=== PATIENT | female | born 1985 | race Two or more races ===

== ENCOUNTER → 2017-02-23 | Outpatient (CLI) | payer SELFPAY | LOC: RAD 14:43 | PROVIDERS: ATTEND Nurse Practitioner Women's Health | DX: Z34.82 Encounter for supervision of other normal pregnancy, second trimester (principal) | CPT/HCPCS: 76805 ==

== ENCOUNTER → 2017-07-21 | Outpatient (CLI) | payer MEDICAID ==
[~2017-07-21] MED LIST: LIDOCAINE 1% INJ-PF (10 MG/ML) 30 ML SDV ONE; MISOPROSTOL 0.2 MG TABLET ONE; OXYTOCIN/NORMAL SALINE 0 UNIT/0 ML RTUINJ ONE; PENICILLIN G-K 5 MILLION UNIT VIAL ONE
[2017-07-22 00:32] LABS: APPEARANCE,URINE CLEAR; BILIRUBIN,URINE NEGATIVE (NEGATIVE); GLUCOSE, URINE NEGATIVE (NEGATIVE); KETONES,URINE NEGATIVE (NEGATIVE); LEUKOCYTE ESTERASE,URINE NEGATIVE (NEGATIVE); NITRITE,URINE NEGATIVE (NEGATIVE); PROTEIN,URINE NEGATIVE (NEGATIVE); URINE SPECIFIC GRAVITY 1.008; UROBILINOGEN,URINE NEGATIVE mg/dL (<2.0)
--- NOTE | 2017-07-22 02:14 | Non Stress Test Report ---
Non Stress Test Datetime Report Generated by CPN: 07/22/2017 02:13 DEMOGRAPHIC EGA NST: 40.2 INDICATION Indication for Study: Other Indication for Study (NST) Other: Labor Check MONITORING Monitor Explained: Monitor Explained; Test Explained; Patient Verbalized Understanding Time on Monitor: 07/22/2017 00:06 Time off Monitor: 07/22/2017 01:29 NST Duration: 83 NST INTERVENTIONS NST Interventions: None Physician Notified NST: Dr Luna BABY A: [id number] BABY A Movement : Present Contraction Frequency : 6-8 FHR Baseline : 135 Accelerations : 15X15 Decelerations : None Variability : Moderate 6-25bpm NST Review: Meets Criteria for Reactive NST NST Review and Verified By : B Perez, RN NST Results: Reactive NST REPORT Report Trigger: Send Report
[2017-07-22 03:03] LABS: URINE BARBITURATES SCREEN NEGATIVE; URINE METHADONE SCREEN NEGATIVE; URINE OPIATES LOW NEGATIVE; URINE PHENCYCLIDINE SCREEN NEGATIVE
== END | disposition home or self-care (01) ==
LOC: LC 23:45
PROVIDERS: ATTEND Student in an Organized Health Care Education/Training Program
PROC: 4A1HXCZ Monitoring of Products of Conception, Cardiac Rate, External Approach (ICD-10-PCS; principal; 2017-07-21)
DX: O47.1 False labor at or after 37 completed weeks of gestation (principal); Z3A.40 40 weeks gestation of pregnancy
CPT/HCPCS: 59025; 80307; 81005; J2540; J2590; J3490

== ENCOUNTER 2017-07-27 07:47 | Inpatient (IN) | payer MEDICAID ==
[2017-07-27] MEDS ORDERED: RINGERS SOLUTION,LACTATED 1,000 ML IV PRN (08:03)
[2017-07-27] MEDS ORDERED: RINGERS SOLUTION,LACTATED 300 ML IV ONE (08:03)
[2017-07-27] MEDS ORDERED: LIDOCAINE 1% INJ-PF (10 MG/ML) 30 ML SDV ONE (08:11)
[2017-07-27] MEDS ORDERED: MISOPROSTOL 0.2 MG TABLET ONE (08:11)
[2017-07-27] MEDS ORDERED: PENICILLIN G-K 5 MILLION UNIT VIAL ONE (08:12)
[2017-07-27] MEDS ORDERED: OXYTOCIN/NORMAL SALINE 20 UNIT/1,000 ML RTUINJ ONE (08:12)
[2017-07-27 08:44] LABS: ABSOLUTE BASOPHILS # (AUTO) 0.1 10^3/uL (0.0-0.2); ABSOLUTE EOSINOPHILS # (AUTO) 0.1 10^3/uL (0.0-0.6); ABSOLUTE LYMPHOCYTES (AUTO) 2.4 10^3/uL (0.5-4.7); ABSOLUTE MONOCYTES (AUTO) 0.5 10^3/uL (0.1-1.4); ABSOLUTE NEUT (AUTO) 4.3 10^3/uL (1.7-8.2); BASOPHILS % (AUTO) 1.1 % (0-2); EOSINOPHILS % (AUTO) 0.8 % (0-6); HEMATOCRIT 36.9 % (36.0-47.0); HEMOGLOBIN 12.4 g/dL (12.0-15.5); HGB HCT DIFFERENCE 0.3; LYMPHOCYTES % (AUTO) 32.4 % (13-45); MEAN CORPUSCULAR HEMOGLOBIN 25.8 pg (27.0-33.4); MEAN CORPUSCULAR HGB CONC 33.5 g/dL (32.0-36.0); MEAN CORPUSCULAR VOLUME 77 fl (80-97); MONOCYTES % (AUTO) 6.7 % (3-13); RED BLOOD COUNT 4.79 10^6/uL (3.72-5.28); RED CELL DISTRIBUTION WIDTH 16.4 % (11.5-14.0); WHITE BLOOD COUNT 7.3 10^3/uL (4.0-10.5)
[2017-07-27] MEDS ORDERED: DIPH/PERTUSS(ACELL)/TETANUS VAC/PF 0.5 ML SYR (>=10YO) IM PRN (09:45)
[2017-07-27] MEDS ORDERED: DIBUCAINE 1% OINTMENT 28 GM TP PRN (09:45)
[2017-07-27] MEDS ORDERED: OXYTOCIN/NORMAL SALINE 20 UNIT/1,000 ML RTUINJ IV PRN (09:45)
[2017-07-27] MEDS ORDERED: BENZOCAINE/MENTHOL AEROSOL SPRAY 56 ML TOP PRN (09:45)
[2017-07-27] MEDS ORDERED: ACETAMINOPHEN WITH CODEINE #3 TABLET PO PRN (09:45)
[2017-07-27] MEDS ORDERED: MISOPROSTOL 0.2 MG TABLET PR ONE (09:45)
[2017-07-27] MEDS ORDERED: ZOLPIDEM TARTRATE 5 MG TABLET PO PRN (09:45)
[2017-07-27] MEDS ORDERED: MEASLES,MUMPS&RUBELLA VACC/PF 0.5 ML VIAL SUBCUT PRN (09:45)
[2017-07-27] MEDS ORDERED: IBUPROFEN 800 MG TABLET ONE (09:47)
--- NOTE | 2017-07-27 11:52 | Admission Physical ---
Datetime Report Generated by CPN: 07/27/2017 11:52 CURRENT ADMISSION Hx Assessment: The History has been Reviewed and is Current Chief Complaint: Uterine Contractions Indication for Induction: Not Applicable Admit Plan: Admit to Unit; Initiate Labor Protocol ALLERGIES Medication Allergies: No Medication Allergies: No Known Allergies (07/22/2017) Medication Allergies: No Known Allergies (10/22/2011) Latex: No Latex Allergies Food Allergies: none Environmental Allergies: none OBSTETRICAL HISTORY EDC: 07/20/2017 00:00 : 3 Para: 2 Term: 2 : 0 SAB: 0 IAB: 0 Ectopic: 0 Livin Cesareans: 0 VBACs: 0 Multiple Births: 0 Gestational Diabetes: No Rh Sensitization: No Incompetent Cervix: No KIP: No Infertility: No ART Treatment: No Uterine Anomaly: No IUGR: No Hx Previous C/S: No Macrosomia: No Hx Loss/Stillborn: No PIH: No Hx : No Placenta Previa/Abruption: No Depression/PP Depression: No PTL/PROM: No Post Hemorrhage: No Current Procedures: Ultrasound; NST SEE RECORDS Alcohol: No Marijuana : No Cocaine: No Other Illicit Drugs: No Cigarettes: Never Smoker. 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 Surgery: No Heart Disease: No Hosp/Surgery: No Autoimmune Disorder: No Anesthetic Complications: No Kidney Disease: No Abnormal Pap Smear: No Neuro/Epilepsy: No Psychiatric Disorders: No Other Medical Diseases: No Hepatitis/Liver Disease: No Significant Family History: No Varicosities/Phlebitis: No Trauma/Violence : No Thyroid Dysfunction: No INFECTIOUS HISTORY Gonorrhea: No Genital Herpes: No Chlamydia: No Tuberculosis: No Syphilis: No Hepatitis: No HIV/AIDS Exposure: No Rash or Viral Illness: No HPV: No PHYSICAL EXAM General: Normal HEENT: Deferred Neurologic: Deferred Thyroid: Normal Heart: Normal Lungs: Normal Breast: Deferred Back: Normal Abdomen: Normal Genitourinary Exam: Normal Extremities: Normal DTRs: Normal Pelvic Type: Adequate Physical Exam Comments: EDC 07-20 G3 P 2 Pelvis proven 8-8 transferred to [facility] @ 35 weeks GBS +, anemia late care 02-18-17 poor dentition FETUS A EGA: 41.0 Monitoring: External US FHR- Baseline: 150 Variability: Moderate 6-25bpm Decelerations: Early Admit Comment: Admitted to L_D in active labor, Cat 1 strip with early, wanting to push anticipate PLANS FOR LABOR AND DELIVERY Labor and Delivery: None Pain Management: Natural Feeding Preference: Breast Benefit of Breast Feed Discussed: Yes Circumcision: N/A INFORMED CONSENT Assignment: Sarah Chaudhry MD Signature: with User ID: [email or web address] : with User ID: [email or web address]
[2017-07-27] MEDS: PRENATAL VITAMIN W-O CA NO5/FE FUMARATE/FA CAPSULE PO SCH (12:20)
[2017-07-27] MEDS: SENNOSIDES/DOCUSATE 8.6-50 MG 1 EACH TABLET PO SCH (12:20)
[2017-07-27] MEDS: FERROUS SULFATE 325 MG TABLET PO SCH ×2 (12:20→18:04)
[2017-07-27] MEDS: DOCUSATE SODIUM 100 MG CAPSULE PO SCH ×2 (12:20→18:04)
[2017-07-27] MEDS: IBUPROFEN 800 MG TABLET PO SCH ×2 (14:24→21:30)
[2017-07-27] MEDS: ACETAMINOPHEN WITH CODEINE #3 TABLET PO PRN ×2 (14:35→20:31)
[2017-07-27 17:01] LABS: APPEARANCE,URINE CLEAR; BILIRUBIN,URINE NEGATIVE (NEGATIVE); GLUCOSE, URINE 150 mg/dL (NEGATIVE); KETONES,URINE NEGATIVE (NEGATIVE); LEUKOCYTE ESTERASE,URINE TRACE (NEGATIVE); NITRITE,URINE NEGATIVE (NEGATIVE); PROTEIN,URINE 30 mg/dL (NEGATIVE); URINE SPECIFIC GRAVITY 1.004; UROBILINOGEN,URINE NEGATIVE mg/dL (<2.0)
[2017-07-27 17:21] LABS: URINE BARBITURATES SCREEN NEGATIVE; URINE METHADONE SCREEN NEGATIVE; URINE PHENCYCLIDINE SCREEN NEGATIVE
[2017-07-27 17:30] LABS: URINE OPIATES LOW UNCONFIRMED POSITIVE
[2017-07-28] MEDS: IBUPROFEN 800 MG TABLET PO SCH ×3 (05:36→22:02)
[2017-07-28 07:17] LABS: HEMATOCRIT 35.1 % (36.0-47.0); HEMOGLOBIN 11.7 g/dL (12.0-15.5); MEAN CORPUSCULAR HEMOGLOBIN 25.6 pg (27.0-33.4); MEAN CORPUSCULAR HGB CONC 33.2 g/dL (32.0-36.0); MEAN CORPUSCULAR VOLUME 77 fl (80-97); RED BLOOD COUNT 4.56 10^6/uL (3.72-5.28); RED CELL DISTRIBUTION WIDTH 17.1 % (11.5-14.0); WHITE BLOOD COUNT 9.8 10^3/uL (4.0-10.5)
--- NOTE | 2017-07-28 09:25 | Delivery Summary ---
Del Sum A-C Datetime Report Generated by CPN: 07/28/2017 09:25 DELIVERY PERSONNEL DELIVERY PERSONNEL: [id number];[phone] DELIVERY PERSONNEL: [id number] Delivery Doctor:: Nichelle Velez CNM Labor and Delivery Nurse:: Sabine Iqbal RNtruck headlight assembler Nurse:: Mirta Duarte RN Nursery Nurse:: Olga Nair RN MATERNAL INFORMATION Delivery Anesthesia: None Medications After Delivery: Pitocin Drip 20 Units/1000ml NSS; Cytotec 800mcg Per Rectum/Vagina Estimated Blood Loss (ml): 300 Maternal Complications: Precipitous Labor (<3hrs) Provider Comments: Progressed quickly and started pushing, pt out of control, not pushing n control, at delivery of vtx, turtle sign, Mc Kin[place], supra pubic, no lateral traction, delivery of infant after 60 seconds, SD secondary to poor maternal effort, baby placed on mothers abd, stimulated, cord blood to lab, spont delivery of grossly nl intact placenta, 3 VC, EBL = 300cc, father cut cord after 2 minutes, Pitocin, cytotec 800mcg via rectum, FFFM baby and mom in recovery in stable condition LABOR SUMMARY EDC: 07/20/2017 00:00 No. Babies in Womb: 1 Attempted: No Labor Anesthesia: None LABOR INFORMATION Reason for Induction: Not Applicable Onset of Labor: 07/27/2017 06:30 Complete Dilatation: 07/27/2017 09:19 Oxytocin: N/A Group B Beta Strep: Positive Antibiotics # of Doses: 1 Antibiotics Time of Last Dose: 0829 Name of Antibiotic Given: Penicillin Steroids Given: None Reason Steroids Not Administered: Not Applicable Other Reason Not Administered: N/A MEMBRANES Membranes Rupture Method: Artificial Rupture of Membranes: 07/27/2017 08:59 Length of Rupture (hr): 0.47 Amniotic Fluid Color: Clear Amniotic Fluid Amount: None Amniotic Fluid Odor: Normal STAGES OF LABOR Stage 1 hr: 2 Stage 1 min: 49 Stage 2 hr: 0 Stage 2 min: 8 Stage 3 hr: 0 Stage 3 min: 6 Total Time in Labor hr: 3 Total Time in Labor min: 3 VAGINAL DELIVERY Episiotomy: None Laceration Extension: N/A Laceration Type: None Laceration Repair: Not Applicable Sponge Count Correct: N/A Sharps Count Correct: N/A BABY A INFORMATION Delivery Date/Time: 07/27/2017 09:27 Method of Delivery: Vaginal Born in Route : No : N/A Forceps: N/A Vacuum Extraction: N/A Shoulder Dystocia : Yes SHOULDER DYSTOCIA BABY A Delivery of Head: 07/27/2017 09:26 Time Head to Delivery : 1.0 1st Intervention to Resolve: McRobert's Maneuver 2nd Intervention to Resolve: Suprapubic Pressure Verify NO Fundal Pressure: No Fundal Pressure Applied Arm Under Symphisis at Del: Right PRESENTATION/POSITION BABY A Presentation: Cephalic Cephalic Presentation: Vertex Vertex Position: Left Occipital Anterior Breech Presentation: N/A PLACENTA INFORMATION BABY A Placenta Delivery Time : 07/27/2017 09:33 Placenta Method of Delivery: Spontaneous Placenta Status: Delivered SCORES BABY A Heart Rate 1 min: >100 bpm Resp Effort 1 min: Good Cry Reflex Irritability 1 min: Cough or Sneeze or Pulls Away Muscle Tone 1 min: Some Flexion of Extremities Color 1 min: Body [place], Extremities Blue Resuscitation Effort 1 min: Tactile Stimulation SCORE 1 MIN: 8 Heart Rate 5 min: >100 bpm Resp Effort 5 min: Good Cry Reflex Irritability 5 min: Cough or Sneeze or Pulls Away Muscle Tone 5 min: Active Motion Color 5 min: Body [place], Extremities Blue Resuscitation Effort 5 min: N/A SCORE 5 MIN: 9 INFORMATION BABY A Gestational Age at Delivery: 41.0 Gestational Status: Late Term- 41- 41.6 Weeks Outcome : Liveborn Condition : Stable Infant Sex: Female IDENTIFICATION BABY A Verification Date/Time: 07/27/2017 09:27 ID Band Number: [id number] Mother's Name Verified: Yes Infant RN Verifying : R. Mary Ellenolimpia, RN/ C. Mahendra, RN WEIGHT/LENGTH BABY A Infant Birthweight (gm): 4235 Infant Weight (lb): 9 Weight (oz): 5 Infant Length (in): 22.00 Length (cm): 55.88 CORD INFORMATION BABY A No. Cord Vessels: 3 Nuchal Cord : N/A Cord Blood Taken: Yes-For Eval (Mom's Blood Type - or O+) Infant Suction: None ASSESSMENT BABY A Infant Complications: Other Complications- Other: Terminal Mec Physical Findings at Delivery: Bruising Respirations: Appears Normal Skin to Skin: Yes Skin to Skin Time (min): 40 Retort Or Condenser Press Operator/ALS Called : No Care By: DOLLY Peacock Transferred To: Remains with Mother BABY B INFORMATION : N/A
[2017-07-28] MEDS: PRENATAL VITAMIN W-O CA NO5/FE FUMARATE/FA CAPSULE PO SCH (09:57)
[2017-07-28] MEDS: DOCUSATE SODIUM 100 MG CAPSULE PO SCH ×2 (09:58→17:38)
[2017-07-28] MEDS: SENNOSIDES/DOCUSATE 8.6-50 MG 1 EACH TABLET PO SCH (09:58)
[2017-07-28] MEDS: FERROUS SULFATE 325 MG TABLET PO SCH ×2 (09:58→17:38)
--- NOTE | 2017-07-28 11:27 | PDOC PROGRESS REPORT ---
Subjective-OB Subjective: Post Delivery Day: 1 32 year old. Denies any needs at this time, pt desires to go home, but understands that with gbs + and only 1 dose of pcn. States lochia is stable, pain well controlled, voiding without difficulty Physical Exam (OB) Vital Signs: Temp Pulse Resp BP Pulse Ox 98.3 F 91 14 116/64 99 07/28/17 07:53 07/28/17 07:53 07/28/17 07:53 07/28/17 07:53 07/28/17 07:53 Intake & Output 07/27/17 07/28/17 07/29/17 06:59 06:59 06:59 Weight 72.892 kg - Lochia Lochia Amount: Small 10-25 ml Lochia Color: Rubra/Red - Abdomen Description: Soft, Flat Hernia Present: No Fundal Description: Firm Fundal Height: u/u - u/2 Objective-Diagnostic Laboratory: 07/28/17 07:08 07/27/17 07/28/17 16:40 07:08 WBC 9.8 RBC 4.56 Hgb 11.7 L Hct 35.1 L MCV 77 L MCH 25.6 L MCHC 33.2 RDW 17.1 H Plt Count 121 L Urine Color RED Urine Appearance CLEAR Urine pH 7.0 Ur Specific [place] 1.004 Urine Protein 30 H Urine Glucose (UA) 150 H Urine Ketones NEGATIVE Urine Blood LARGE H Urine Nitrite NEGATIVE Ur Leukocyte Esterase TRACE H Assessment and Plan(PN) - Assessment and Plan (1) GBS (group B Streptococcus carrier), +RV culture, currently Is this a current diagnosis for this admission?: Yes Plan: monitor baby (2) Vaginal delivery Is this a current diagnosis for this admission?: Yes Plan: routine pp care - Time Spent with Patient Time with patient: Less than 15 minutes Critical Time spent with patient: Less than 15 minutes Medications reviewed and adjusted accordingly: Yes - Disposition Anticipated Discharge: Home Within: within 24 hours
[2017-07-29] MEDS: IBUPROFEN 800 MG TABLET PO SCH (05:37)
--- NOTE | 2017-07-29 07:51 | PDOC DISCHARGE SUMMARY ---
Final Diagnosis Discharge Date: 07/29/17 - Final Diagnosis (1) GBS (group B Streptococcus carrier), +RV culture, currently Is this a current diagnosis for this admission?: Yes (2) Vaginal delivery Is this a current diagnosis for this admission?: Yes Discharge Data - Discharge Medication Home Medications: Docusate Sodium [Colace 100 mg Capsule] 100 mg PO BID #60 capsule 07/29/17 Ferrous Sulfate [Feosol 325 mg Tablet] 325 mg PO BID #60 tablet 07/29/17 Ibuprofen [Motrin 800 mg Tablet] 800 mg PO Q8 #60 tablet 07/29/17 Gestational Age: 41 Reason(s) for Admission: Onset of Labor, Group B Strep Positive - tx X1 Procedures: NST Intrapartum Procedure(s): Spontaneous Vaginal Delivery - Data Baby 1 Female at 1 minute: 8 at 5 minutes: 9 Weight: 4235 kg Home with Mother: Yes Complications: Yes - 60 second shoulder dystocia - Diagnosis Test Laboratory: Temp Pulse Resp BP Pulse Ox 98.3 F 91 14 116/64 99 07/28/17 07:53 07/28/17 07:53 07/28/17 07:53 07/28/17 07:53 07/28/17 07:53 07/27/17 07/27/17 07/28/17 08:27 16:40 07:08 RBC 4.79 4.56 Hgb 12.4 11.7 L Hct 36.9 35.1 L Urine Opiates Screen UNCONFIRMED POSITIVE - Discharge information/Instructions Discharge Activity: Activity As Tolerated, Pelvic Rest, No tub bath Discharge Diet: Regular Disposition: HOME, SELF-CARE Follow up with: [facility] in: 4, Weeks
[2017-07-29 09:06] VITALS: BP 120/74
== END 2017-07-29 09:39 | disposition home or self-care (01) | DRG 775 ==
LOC: LC 07:47 → LR 08:11 → 2N 11:48
PROVIDERS: ADMIT Specialist; ATTEND Specialist
PROC: 10E0XZZ Delivery of Products of Conception, External Approach (ICD-10-PCS; principal; 2017-07-27)
PROC: 10907ZC Drainage of Amniotic Fluid, Therapeutic from Products of Conception, Via Natural or Artificial Opening (ICD-10-PCS; 2017-07-27)
PROC: 4A1HXCZ Monitoring of Products of Conception, Cardiac Rate, External Approach (ICD-10-PCS; 2017-07-27)
DX: O99.824 Streptococcus B carrier state complicating childbirth (principal); O48.0 Post-term pregnancy; O66.9 Obstructed labor, unspecified; O99.02 Anemia complicating childbirth; D64.9 Anemia, unspecified; O62.3 Precipitate labor; Z3A.41 41 weeks gestation of pregnancy; Z37.0 Single live birth
CPT/HCPCS: 36415; 80307; 81005; 85025; 85027; 86592; 86850; 86900; 86901; J2540; J2590; J3490

== ENCOUNTER → 2018-07-26 | Outpatient (CLI) | payer SELFPAY ==
[2018-07-26 18:34] LABS: BACTERIA (WET MOUNT) 3+ BACTERIA SEEN; EPITHELIALS (WET MOUNT) 3+ EPITHELIALS SEEN; T.VAGINALIS (WET MOUNT) NO TRICHOMONAS SEEN; WBCS (WET MOUNT) RARE WBCS SEEN; YEAST (WET MOUNT) NO YEAST SEEN
== END ==
LOC: LAB 16:12
PROVIDERS: ATTEND Nurse Practitioner Family
DX: N89.8 Other specified noninflammatory disorders of vagina (principal); R30.0 Dysuria
CPT/HCPCS: 87086; 87088; 87186; 87210

== ENCOUNTER → 2020-10-22 | Outpatient (CLI) | payer SELFPAY ==
--- NOTE | 2020-10-22 15:55 | RADIOLOGY REPORT (SQ) ---
EXAM DESCRIPTION: U/S OB 14+ TRNABD 1GES W/O DOP IMAGES COMPLETED DATE/TIME: 10/22/2020 3:14 pm REASON FOR STUDY: Z34.83 ENCOUNTER FOR SUPRVSN OF NORMAL , THIRD TRIMESTER Z34.83 ENCOUNTE R FOR SUPRVSN OF NORMAL , THIRD TRIM COMPARISON: 10/16/2018 TECHNIQUE: Static and Dynamic grayscale imaging performed of gravid uterus using transabdominal appr oach. Additional selected color Doppler and spectral images recorded. All stored on PACS. LIMITATIONS: None. FINDINGS: FETUSES SEEN:1 EGA: 35 weeks 5 days Calculated using BPD,FL,HC,AC documented on images. RHINA: 11/21/2020 EFW: 2,653 grams PERCENTILE: 21 SHAKA: 20.4. LVP: 7.4 x 4.7 PLACENTA: Posterior PRESENTATION: Vertex ANATOMY: HEART RATE: 173 beats per minute. FOUR CHAMBER HEART: Visualized. THREE VESSEL CORD: Yes. CORD INSERTION: Visualized. KIDNEYS AND BLADDER: Visualized. Appear normal. STOMACH: Visualized. Appears normal. SPINE: Limited visualization BRAIN AND LATERAL VENTRICLES: Visualized. Appear normal. OTHER: No other significant finding. MATERNAL ADNEXA: Maternal ovaries not visualized. CERVICAL LENGTH: 5.1 Closed. OTHER: No other significant finding. IMPRESSION: LIVING INTRAUTERINE . ESTIMATED GESTATIONAL AGE 35 weeks 5 days NO VISUALIZED ANOMALIES. Trimester of : Third trimester - 28 weeks to delivery. TECHNICAL DOCUMENTATION: JOB ID: [id number] 2010 [employer]- All Rights Reserved Reading location - IP/workstation name: [email or web address]
== END ==
LOC: RAD 14:30
PROVIDERS: ATTEND Nurse Practitioner Family
DX: Z34.83 Encounter for supervision of other normal pregnancy, third trimester (principal); Z3A.35 35 weeks gestation of pregnancy
CPT/HCPCS: 76805

== ENCOUNTER 2020-11-28 15:54 | Inpatient (IN) | payer MEDICAID ==
[2020-11-28] MEDS ORDERED: OXYTOCIN 10 UNIT/ML VIAL ONE (16:31)
[2020-11-28] MEDS ORDERED: LIDOCAINE 1% INJ-PF (10 MG/ML) 30 ML SDV ONE (16:31)
[2020-11-28] MEDS ORDERED: MISOPROSTOL 0.2 MG TABLET ONE (16:31)
[2020-11-28] MEDS ORDERED: MAG HYDROX/AL HYDROX/SIMETH SUSP 30 ML UDCUP ONE ×2 (16:32→16:34)
[2020-11-28] MEDS ORDERED: OXYTOCIN/0.9 % SODIUM CHLORIDE 30 UNIT/500 ML RTUINJ ONE (16:32)
[2020-11-28] MEDS ORDERED: PENICILLIN G-K 5 MILLION UNIT VIAL ONE ×2 (16:32→19:46)
[2020-11-28] MEDS ORDERED: MAG HYDROX/AL HYDROX/SIMETH SUSP 30 ML UDCUP PO ONE (16:34)
[2020-11-28] MEDS ORDERED: RINGERS SOLUTION,LACTATED 1,000 ML IV ONE (16:37)
[2020-11-28] MEDS ORDERED: RINGERS SOLUTION,LACTATED 500 ML IV ONE (16:37)
[2020-11-28] MEDS ORDERED: PENICILLIN G POTASSIUM 5,000,000 UNIT in DEXTROSE 5%-WATER 100 ML IV ONE (16:37)
[2020-11-28 16:51] LABS: BACTERIA (WET MOUNT) 3+ BACTERIA SEEN; EPITHELIALS (WET MOUNT) 3+ EPITHELIALS SEEN; RBCS (WET MOUNT) NO RBCS SEEN; T.VAGINALIS (WET MOUNT) NO TRICHOMONAS SEEN; WBCS (WET MOUNT) 1+ WBCS SEEN; YEAST (WET MOUNT) NO YEAST SEEN
[2020-11-28 17:01] LABS: APPEARANCE,URINE CLOUDY; BILIRUBIN,URINE NEGATIVE (NEGATIVE); COLOR,URINE YELLOW; GLUCOSE, URINE NEGATIVE (NEGATIVE); KETONES,URINE NEGATIVE (NEGATIVE); LEUKOCYTE ESTERASE,URINE MODERATE (NEGATIVE); NITRITE,URINE NEGATIVE (NEGATIVE); PROTEIN,URINE 30 mg/dL (NEGATIVE); URINE SPECIFIC GRAVITY 1.015; UROBILINOGEN,URINE NEGATIVE mg/dL (<2.0)
[2020-11-28 17:19] LABS: URINE AMPHETAMINES SCREEN NEGATIVE; URINE BARBITURATES SCREEN NEGATIVE; URINE BENZODIAZEPINES SCREEN NEGATIVE; URINE COCAINE SCREEN NEGATIVE; URINE MARIJUANA (THC) SCREEN NEGATIVE; URINE PHENCYCLIDINE SCREEN NEGATIVE
[2020-11-28 17:22] LABS: ABSOLUTE LYMPHOCYTES (AUTO) 2.1 10^3/uL (0.5-4.7); ABSOLUTE MONOCYTES (AUTO) 0.4 10^3/uL (0.1-1.4); BASOPHILS % (AUTO) 0.4 % (0-2); EOSINOPHILS % (AUTO) 0.6 % (0-6); HEMATOCRIT 34.3 % (36.0-47.0); HEMOGLOBIN 11.5 g/dL (12.0-15.5); LYMPHOCYTES % (AUTO) 31.3 % (13-45); MEAN CORPUSCULAR HEMOGLOBIN 25.3 pg (27.0-33.4); MEAN CORPUSCULAR HGB CONC 33.6 g/dL (32.0-36.0); MEAN CORPUSCULAR VOLUME 76 fl (80-97); MONOCYTES % (AUTO) 6.7 % (3-13); PLATELET COUNT 112 10^3/uL (150-450); RED BLOOD COUNT 4.55 10^6/uL (3.72-5.28); RED CELL DISTRIBUTION WIDTH 18.2 % (11.5-14.0); TOTAL CELLS COUNTED % (AUTO) 100 %; WHITE BLOOD COUNT 6.6 10^3/uL (4.0-10.5)
[2020-11-28 17:28] LABS: URINE METHADONE SCREEN NEGATIVE
--- NOTE | 2020-11-28 18:08 | Admission Physical ---
Datetime Report Generated by CPN: 11/28/2020 18:08 CURRENT ADMISSION Chief Complaint: Suspected Ruptured Membranes ALLERGIES Medication Allergies: No Medication Allergies: No Known Allergies (11/28/2020) Latex: No Latex Allergies OBSTETRICAL HISTORY EDC: 12/12/2020 00:00 : 4 Para: 3 Term: 3 : 0 SAB: 0 IAB: 0 Livin Gestational Diabetes: No Rh Sensitization: No Incompetent Cervix: No KIP: No Infertility: No ART Treatment: No Uterine Anomaly: No IUGR: No Hx Previous C/S: No Macrosomia: No Hx Loss/Stillborn: No PIH: No Hx : No Placenta Previa/Abruption: No Depression/PP Depression: No PTL/PROM: No Post Hemorrhage: No Current Procedures: Ultrasound; NST Obstetrical History Comments: 2008: full term 2010: full term 2016: full term SEE RECORDS Alcohol: No Marijuana : No Cocaine: No Other Illicit Drugs: No Cigarettes: Never Smoker. 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 Surgery: No Heart Disease: No Hosp/Surgery: No Autoimmune Disorder: No Anesthetic Complications: No Kidney Disease: No Abnormal Pap Smear: No Neuro/Epilepsy: No Psychiatric Disorders: No Other Medical Diseases: No Hepatitis/Liver Disease: No Significant Family History: No Varicosities/Phlebitis: No Trauma/Violence : No Thyroid Dysfunction: No INFECTIOUS HISTORY Gonorrhea: No Genital Herpes: No Chlamydia: No Tuberculosis: No Syphilis: No Hepatitis: No HIV/AIDS Exposure: No Rash or Viral Illness: No HPV: No PHYSICAL EXAM General: Normal HEENT: Normal Neurologic: Normal Thyroid: Deferred Heart: Normal Lungs: Deferred Breast: Normal Back: Normal Abdomen: Normal Genitourinary Exam: Normal Extremities: Normal DTRs: Normal Pelvic Type: Adequate Vital Signs: Reviewed VAGINAL EXAM Dilatation: 4 Effacement: 50 Station: -2 Contraction Comments: irreg FETUS A EGA: 38.0 Monitoring: External US FHR- Baseline: 150 Variability: Moderate 6-25bpm Accelerations: 15X15 Decelerations: None FHR Category: Category I Presentation: Vertex Admit Comment: 35yo at 38+0ega with LMP dating reported as Sure LMP. Late entry into care 10/16/2020 at approx 32wks. Denies prior medical issues other than Heartburn and anemia. Labs on admission also significant for Gestational thrombocytopenia (appears she had this with 2017 delivery as well). She has a h/o precipitous labor. GBS pos. PCN for GBS prophy. SROm at appex 1400 with clear to brownish fluid per patient. EFW on 11/17 was 7#1oz (12%). She reports initial care in [facility] but no records are available. Admit to labor and delivery. Anticipate . Plan to start pitoicn when 3 hours from initial dose of PCN INFORMED CONSENT Informed Consent Obtained: Vaginal Delivery; Risks, Benefits and Alternatives Discussed Signature: with User ID: [email or web address]
[2020-11-28 18:25] LABS: CHLAM PCR NOT DETECTED (NOT DETECT)
[2020-11-28] MEDS ORDERED: OXYTOCIN/0.9 % SODIUM CHLORIDE 30 UNIT/500 ML RTUINJ IV PRN ×2 (19:04→23:38)
[2020-11-28] MEDS: PENICILLIN G POTASSIUM 2,500,000 UNIT in DEXTROSE 5%-WATER 50 ML IV SCH (20:39)
[2020-11-28] MEDS ORDERED: ROPIVACAINE HCL 0.2% INJ/PF (2 MG/ML) 20 ML SDV ONE (20:45)
[2020-11-28] MEDS ORDERED: EPHEDRINE SULFATE INJ 50 MG/1 ML AMPULE ONE (20:45)
[2020-11-28] MEDS ORDERED: FENTANYL/BUPIVACAINE/NS/PF 300 MCG/150 ML RTUINJ EPI ONE (20:45)
[2020-11-28] MEDS ORDERED: ACETAMINOPHEN 650 MG SUPP.RECT PR PRN (23:38)
[2020-11-28] MEDS ORDERED: BENZOCAINE/MENTHOL AEROSOL SPRAY 56 ML TOP PRN (23:38)
[2020-11-28] MEDS ORDERED: DIBUCAINE 1% OINTMENT 28 GM TP PRN (23:38)
[2020-11-28] MEDS ORDERED: ACETAMINOPHEN 325 MG TABLET PO PRN (23:38)
[2020-11-28] MEDS ORDERED: MAGNESIUM HYDROXIDE SUSP 30 ML UDCUP PO PRN (23:38)
[2020-11-28] MEDS ORDERED: GLYCERIN/WITCH HAZEL LEAF 1 EACH MED..WIPE TP PRN (23:38)
[2020-11-28] MEDS ORDERED: FAMOTIDINE 20 MG TABLET PO PRN (23:38)
[2020-11-28] MEDS ORDERED: MEASLES,MUMPS&RUBELLA VACC/PF 0.5 ML VIAL SUBCUT PRN (23:38)
[2020-11-28] MEDS ORDERED: PSEUDOEPHEDRINE HCL 30 MG TABLET PO PRN (23:38)
[2020-11-28] MEDS ORDERED: ACETAMINOPHEN WITH CODEINE #3 TABLET PO PRN ×2 (23:38)
[2020-11-28] MEDS ORDERED: ZOLPIDEM TARTRATE 5 MG TABLET PO PRN (23:38)
[2020-11-28] MEDS ORDERED: DIPHENHYDRAMINE HCL 25 MG CAPSULE PO PRN (23:38)
[2020-11-28] MEDS ORDERED: DIPH/PERTUSS(ACELL)/TETANUS VAC/PF 0.5 ML SYR (>=10YO) IM PRN (23:38)
[2020-11-28] MEDS ORDERED: MAG HYDROX/AL HYDROX/SIMETH SUSP 30 ML UDCUP PO PRN (23:38)
[2020-11-28] MEDS ORDERED: VARICELLA VACC/PF (1350 UNIT/0.5 ML) 0.5 ML VIAL SUBCUT PRN (23:38)
[2020-11-28] MEDS ORDERED: MISOPROSTOL 0.1 MG TABLET PR ONE (23:40)
[2020-11-29 00:09] LABS: HEMATOCRIT 36.2 % (36.0-47.0); MEAN CORPUSCULAR HGB CONC 33.2 g/dL (32.0-36.0); MEAN CORPUSCULAR VOLUME 75 fl (80-97); PLATELET COUNT 112 10^3/uL (150-450); RED BLOOD COUNT 4.81 10^6/uL (3.72-5.28); WHITE BLOOD COUNT 6.7 10^3/uL (4.0-10.5)
[2020-11-29] MEDS ORDERED: OXYTOCIN/0.9 % SODIUM CHLORIDE 30 UNIT/500 ML RTUINJ ONE (00:19)
--- NOTE | 2020-11-29 01:33 | Delivery Summary ---
Del Sum A-C Datetime Report Generated by CPN: 11/29/2020 01:33 DELIVERY PERSONNEL DELIVERY PERSONNEL: [id number] Delivery Doctor:: Natacha Luna MD RADIATOR FITTER:: Shawn Zaidi RADIATOR FITTER Labor and Delivery Nurse:: Azalia Perkins RNphytopathologist Nurse:: Lucille Landry RN Nursery Nurse:: Margarita Clark RN Nursery Nurse:: TESS Adamson Strapper/BIT SANDER: Lois Hendricks, ST MATERNAL INFORMATION Delivery Anesthesia: Epidural Medications After Delivery: Cytotec 1000mcg Per Rectum/Vagina; Other-Please Comment Meds After Delivery Comment: Pitocin 60 units total Estimated Blood Loss (ml): 150 Delivery QBL: 150 Maternal Complications: None Provider Comments: VMI delivered in HEIKE presentation. Double nuchal cord reduced. Shoulders and body delivered without difficulty. to maternal abdomen for NRP. Delayed cord clamping done. Cord doubly clamped and cut. Placenta delivered intact spontaneously intact. No perineal lacerations. Mother and baby stable upon provider leaving the room. Cytotec 1000mcg given for mild uterine atony. LABOR SUMMARY EDC: 12/12/2020 00:00 No. Babies in Womb: 1 Attempted: No Labor Anesthesia: Epidural LABOR INFORMATION Reason for Induction: Not Applicable Onset of Labor: 11/28/2020 14:00 Complete Dilatation: 11/28/2020 23:03 Oxytocin: Augmentation Group B Beta Strep: Positive Antibiotics # of Doses: 2 Antibiotics Time of Last Dose: 11/28/2020 20:38 Name of Antibiotic Given: PCN Steroids Given: None Reason Steroids Not Administered: Not Applicable MEMBRANES Membranes Rupture Method: Spontaneous Rupture of Membranes: 11/28/2020 14:00 Length of Rupture (hr): 9.33 Amniotic Fluid Color: Clear Amniotic Fluid Amount: Moderate Amniotic Fluid Odor: Normal STAGES OF LABOR Stage 1 hr: 9 Stage 1 min: 3 Stage 2 hr: 0 Stage 2 min: 17 Stage 3 hr: 0 Stage 3 min: 2 Total Time in Labor hr: 9 Total Time in Labor min: 22 VAGINAL DELIVERY Episiotomy: None Laceration #1: None Laceration Extension #1: N/A Laceration Repair: Not Applicable Sponge Count Correct: Yes Sharps Count Correct: Yes CSECTION DELIVERY Primary Indication: N/A Secondary Indication: N/A CSection Incidence: N/A Labor: N/A Elective: N/A CSection Incision: N/A BABY A INFORMATION Delivery Date/Time: 11/28/2020 23:20 Method of Delivery: Vaginal Nurse Controlled Delivery: No Born in Route : No : N/A Forceps: N/A Vacuum Extraction: N/A Shoulder Dystocia : No PRESENTATION/POSITION BABY A Presentation: Cephalic Cephalic Presentation: Vertex Vertex Position: Right Occipital Anterior Breech Presentation: N/A PLACENTA INFORMATION BABY A Placenta Delivery Time : 11/28/2020 23:22 Placenta Method of Delivery: Spontaneous Placenta Status: Delivered SCORES BABY A Heart Rate 1 min: >100 bpm Resp Effort 1 min: Good Cry Reflex Irritability 1 min: Cough or Sneeze or Pulls Away Muscle Tone 1 min: Active Motion Color 1 min: Body [place], Extremities Blue Resuscitation Effort 1 min: Tactile Stimulation SCORE 1 MIN: 9 Heart Rate 5 min: >100 bpm Resp Effort 5 min: Good Cry Reflex Irritability 5 min: Cough or Sneeze or Pulls Away Muscle Tone 5 min: Active Motion Color 5 min: Body [place], Extremities Blue SCORE 5 MIN: 9 INFORMATION BABY A Gestational Age at Delivery: 38.0 Gestational Status: Early Term- 37- 38.6 Weeks Outcome : Liveborn Condition : Stable Infant Sex: Male IDENTIFICATION BABY A Verification Date/Time: 11/29/2020 00:08 ID Band Number: [id number] Mother's Name Verified: Yes Infant RN Verifying : Cristina GregorioTESS barakat Additional Verifying Personnel: Joseph Landry RN WEIGHT/LENGTH BABY A Infant Birthweight (gm): 3464 Weight (lb): 7 Weight (oz): 10 Length (in): 21.00 Length (cm): 53.34 CORD INFORMATION BABY A No. Cord Vessels: 3 Nuchal Cord : Around Neck x2, Loose Cord Blood Taken: Yes-For Eval (Mom's Blood Type - or O+) Suction: Mouth; Nose ASSESSMENT BABY A Infant Complications: Meconium Physical Findings at Delivery: Within Normal Limits Physical Findings- Other: see initial nursery assessment Respirations: Appears Normal Skin to Skin: Yes Aerial Erector/ALS Called : No Infant Care By: L. Clark, RN Transferred To: Remains with Mother BABY B INFORMATION : N/A SIGNATURES Signature: with User ID: [email or web address]
--- NOTE | 2020-11-29 01:33 | Birth Certificate Data ---
Cert Data Datetime Report Generated by CPN: 11/29/2020 01:33 CERTIFICATE DATA Delivery Provider: Natacha Luna MD (11/28/2020 17:45:Azalia Perkins RN) 47a. Care: No (11/28/2020 17:45:Carolina Cross RN) 47b. Date of First Visit: 10/16/2020 00:00 (11/28/2020 17:45:Carolina Cross RN) 47c. Date of Last Visit: 10/27/2021 00:00 (11/28/2020 17:45:Azalia Perkins RN) 47d. Number of Visits: 2 (11/28/2020 17:45:Azalia Perkins RN) 48a. Number of Prev Live Births: 3 (11/28/2020 17:45:Azalia Perkins RN) 48b. Now Livin (11/28/2020 17:45:Natacha Luna MD ([facility])) 48c. Live Births Now : 0 (11/28/2020 17:45:QS system process) 48e. Losses: 0 (11/28/2020 17:45:Carolina Cross RN) RISK FACTORS IN THIS 49a. Diabetes: No (11/28/2020 17:45:Carolina Cross RN) 49b. Hypertension: No (11/28/2020 17:45:Carolina Cross RN) 49c. Previous Births: 0 (11/28/2020 17:45:Natacha Luna MD ([facility])) 49d. Stillborns: No (11/28/2020 17:45:Carolina Cross RN) 49d. IUGR: No (11/28/2020 17:45:Carolina Cross RN) 49e. Infertility Treatment: No (11/28/2020 17:45:Carolina Cross RN) Mother's Height 50b. Height Inches: 65 (11/28/2020 16:04:QS system process) Mother's Weight 51b. Weight at Delivery (lbs): 176 (11/28/2020 20:07:QS system process) 52. Dt Last Normal Menses Began: 03/17/2020 00:00 (11/28/2020 17:45:Natacha Luna MD ([facility])) Infections Present/Treated 53a. Gonorrhea: No (11/28/2020 17:45:Carolina Cross RN) Results this Hospital Visit : Negative (11/28/2020 17:45:Lucille Landry RN) 53b. Syphilis: No (11/28/2020 17:45:Carolina Cross RN) 53c. Chlamydia: No (11/28/2020 17:45:Carolina Cross RN) Results this Hospital Visit: Negative (11/28/2020 17:45:Lucille Landry RN) 53d. Hepatitis B: No (11/28/2020 17:45:Carolina Cross RN) 53e. Hepatitis C: Negative (11/28/2020 17:45:Ethel Olivas RN) 53h. Mother Tested for HBsAG: Yes (11/28/2020 17:45:Lucille Landry RN) 53i. Date Tested: 11/28/2020 00:00 (11/28/2020 17:45:Lucille Landry RN) Obstetric Procedures 54a, b, c. Obstetric Procedures: Ultrasound; NST (11/28/2020 17:45:Carolina Cross RN) Cigarette Smoking Cigarette Smoking: Never Smoker. [id number] (11/28/2020 17:45:Carolina Cross RN) 55a. 3 Months Before Preg - Ci (11/28/2020 17:45:Carolina Cross RN) 55a. Packs: 0 (11/28/2020 17:45:Carolina Cross RN) 55b. 1st Trimester of Preg- Ci (11/28/2020 17:45:Carolina Cross RN) 55b. Packs: 0 (11/28/2020 17:45:Carolina Cross RN) 55c. 2nd Trimester of Preg- Ci (11/28/2020 17:45:Carolina Cross RN) 55c. Packs: 0 (11/28/2020 17:45:Carolina Cross RN) 55d. 3rd Trimester of Preg- Ci (11/28/2020 17:45:Carolina Cross RN) 55d. Packs: 0 (11/28/2020 17:45:Carolina Cross RN) Onset of Labor 56a. PROM >12 Hrs: 9.33 (11/28/2020 17:45:QS system process) 56b. Precipitous Labor <3 Hrs: 9 (11/28/2020 17:45:QS system process) 56c. Prolonged Labor > 20 Hrs: 9 (11/28/2020 17:45:QS system process) 57a. Induction of Labor: Augmentation (11/28/2020 17:45:Azalia Perkins RN) 57c. Non-Vertex Presentation A: Vertex (11/28/2020 17:45:Azalia Perkins RN) 57d. Steroids - Lung Mat: None (11/28/2020 17:45:Azalia Perkins RN) 57d. Steroids - Lung Mat: Not Applicable (11/28/2020 17:45:Azalia Perkins RN) 57e. Antibiotics During Labor: PCN (11/28/2020 17:45:Natacha Luna MD ([facility])) 57e. Antibiotics During Labor: 11/28/2020 20:38 (11/28/2020 17:45:Lucille Landry RN) 57f. Mat [place] or Temp >100.4: 98.6 (11/28/2020 17:45:Azalia Perkins RN) 57g. Moderate/Heavy Meconium: Clear (11/28/2020 14:00:Carolina Cross RN) 57h. Intolerance of Labor: N/A (11/28/2020 17:45:Lucille Landry RN) : N/A (11/28/2020 17:45:Lucille Landry RN) 57i. Epidural/Spinal Anesthesia: Epidural (11/28/2020 17:45:Azalia Perkins RN) Method of Delivery 58a. Forceps - Unsuccessful A: N/A (11/28/2020 17:45:Azalia Perkins RN) 58b. Vacuum - Unsuccessful A: N/A (11/28/2020 17:45:Azalia Perkins RN) 58c. Presentation at 58c. Presentation at - A : Vertex (11/28/2020 17:45:Azalia Perkins RN) 58c. Presentation at - A : N/A (11/28/2020 17:45:Azalia Perkins RN) 58c. Presentation at - A : Cephalic (11/28/2020 21:44:Azalia Perkins RN) Final Route and Method of Del 58d. Baby A Route/Delivery: Vaginal (11/28/2020 23:20:Azalia Perkins RN) 58e. Trial of Labor Attempted: No (11/28/2020 17:45:Azalia Perkins RN) 58e. Trial of Labor Attempted A: N/A (11/28/2020 17:45:Azalia Perkins RN) 58e. Trial of Labor Attempted B: N/A (11/28/2020 17:45:Azalia Perkins RN) Maternal Morbidity 59b. 3rd or 4th Degree Lacs: None (11/28/2020 17:45:Natacha Luna MD ([facility])) Birthweight Baby A: 3464 (11/28/2020 17:45:Azalia Perkins RN) 60a. Pounds : 7 (11/28/2020 17:45:QS system process) 60b. Ounces: 10 (11/28/2020 17:45:QS system process) 61. GA at Delivery Baby A: 38.0 (11/28/2020 17:45:Azalia Perkins RN) : Early Term- 37- 38.6 Weeks (11/28/2020 17:45:QS system process) 62a. 5 Minute Baby A: 9 (11/28/2020 17:45:QS system process)
[2020-11-29] MEDS: PENICILLIN G POTASSIUM 2,500,000 UNIT in DEXTROSE 5%-WATER 50 ML IV SCH (02:57)
[2020-11-29] MEDS: IBUPROFEN 800 MG TABLET PO SCH ×3 (05:06→21:26)
[2020-11-29 07:10] LABS: HEMATOCRIT 34.2 % (36.0-47.0); HEMOGLOBIN 11.3 g/dL (12.0-15.5); MEAN CORPUSCULAR HEMOGLOBIN 25.1 pg (27.0-33.4); MEAN CORPUSCULAR HGB CONC 33.1 g/dL (32.0-36.0); MEAN CORPUSCULAR VOLUME 76 fl (80-97); PLATELET COUNT 118 10^3/uL (150-450); RED BLOOD COUNT 4.52 10^6/uL (3.72-5.28); RED CELL DISTRIBUTION WIDTH 17.8 % (11.5-14.0); WHITE BLOOD COUNT 8.6 10^3/uL (4.0-10.5)
[2020-11-29] MEDS: SENNOSIDES/DOCUSATE 8.6-50 MG 1 EACH TABLET PO SCH (09:02)
[2020-11-29] MEDS: PRENATAL VITAMIN W DHA CAPSULE PO SCH (09:02)
[2020-11-29] MEDS: DOCUSATE SODIUM 100 MG CAPSULE PO SCH ×2 (09:02→18:03)
[2020-11-29] MEDS: FERROUS SULFATE 325 MG TABLET PO SCH ×2 (09:02→18:03)
--- NOTE | 2020-11-29 10:53 | PDOC PROGRESS REPORT ---
Subjective Date:: 11/29/20 Subjective:: She is doing well today. Reason For Visit: Physical Exam - Physical Exam Vital Signs: Temp Pulse Resp BP Pulse Ox 98.1 F 90 18 117/70 99 11/29/20 07:11 11/29/20 07:11 11/29/20 07:11 11/29/20 07:11 11/29/20 07:11 Intake & Output 11/28/20 11/29/20 11/30/20 06:59 06:59 06:59 Intake Total 1000 Output Total 750 Balance 250 Weight 79.7 kg General appearance: PRESENT: no acute distress, well-developed, well-nourished Head exam: PRESENT: atraumatic, normocephalic Result Laboratory Results: 11/29/20 06:50 11/28/20 11/28/20 11/28/20 16:15 17:10 17:11 WBC 6.6 RBC 4.55 Hgb 11.5 L Hct 34.3 L MCV 76 L MCH 25.3 L MCHC 33.6 RDW 18.2 H Plt Count 112 L Seg Neutrophils % 61.0 Urine Color YELLOW Urine Appearance CLOUDY Urine pH 7.0 Ur Specific [place] 1.015 Urine Protein 30 H Urine Glucose (UA) NEGATIVE Urine Ketones NEGATIVE Urine Blood SMALL H Urine Nitrite NEGATIVE Ur Leukocyte Esterase MODERATE H Blood Type O POSITIVE Antibody Screen NEGATIVE 11/29/20 11/29/20 00:02 06:50 WBC 6.7 8.6 RBC 4.81 4.52 Hgb 12.0 11.3 L Hct 36.2 34.2 L MCV 75 L 76 L MCH 25.0 L 25.1 L MCHC 33.2 33.1 RDW 18.0 H 17.8 H Plt Count 112 L 118 L Seg Neutrophils % Urine Color Urine Appearance Urine pH Ur Specific [place] Urine Protein Urine Glucose (UA) Urine Ketones Urine Blood Urine Nitrite Ur Leukocyte Esterase Blood Type Antibody Screen Impressions: Doing well PPD number 1. Assessment & Plan - Time Time Spent with patient: Less than 15 minutes Medications reviewed and adjusted accordingly: Yes Anticipated discharge: Home Anticipated DC Timeframe: within 48 hours - Plan Summary Plan Summary: Plan home tomorrow.
[2020-11-30] MEDS: IBUPROFEN 800 MG TABLET PO SCH (05:55)
--- NOTE | 2020-11-30 10:30 | PDOC DISCHARGE SUMMARY ---
Impression - Admit/DC Date/PCP Admission Date/Primary Care Provider: 11/28/20 17:11 BRENNAN CANTU Discharge Date: 11/30/20 - Discharge Diagnosis (1) Late care affecting Is this a current diagnosis for this admission?: Yes (2) Vaginal delivery Is this a current diagnosis for this admission?: Yes - Assessment Summary: The patient delivered vaginally. Post she did well and is ready to go home today. - Additional Information Resuscitation Status: Full Code Discharge Diet: As Tolerated Discharge Activity: Pelvic Rest, Slowly Increase Activity Referrals: LEROY MONET ARNP [Primary Care Provider] - Home Medications: No122/Iron/Folic Acid [ Multi Tablet] 1 each PO DAILY 10/26/18 Ferrous Sulfate [Feosol 325 mg Tablet] 325 mg PO BID #60 tablet 10/28/18 History of Present Illiness History of Present Illness: GLORIA NEGRON is a 35 year old female Physical Exam - Physical Exam Vital Signs: Temp Pulse Resp BP Pulse Ox 97.7 F 69 16 114/52 L 99 11/30/20 07:38 11/30/20 07:38 11/30/20 07:38 11/30/20 07:38 11/30/20 07:38 Intake & Output 11/29/20 11/30/20 12/01/20 06:59 06:59 06:59 Intake Total 1000 400 Output Total 750 Balance 250 400 Weight 79.7 kg Results Laboratory Results: WBC 8.6 10^3/uL (4.0-10.5) 11/29/20 06:50 RBC 4.52 10^6/uL (3.72-5.28) 11/29/20 06:50 Hgb 11.3 g/dL (12.0-15.5) L 11/29/20 06:50 Hct 34.2 % (36.0-47.0) L 11/29/20 06:50 MCV 76 fl (80-97) L 11/29/20 06:50 MCH 25.1 pg (27.0-33.4) L 11/29/20 06:50 MCHC 33.1 g/dL (32.0-36.0) 11/29/20 06:50 RDW 17.8 % (11.5-14.0) H 11/29/20 06:50 Plt Count 118 10^3/uL (150-450) L 11/29/20 06:50 Lymph % (Auto) 31.3 % (13-45) 11/28/20 17:11 [place] % (Auto) 6.7 % (3-13) 11/28/20 17:11 Eos % (Auto) 0.6 % (0-6) 11/28/20 17:11 Baso % (Auto) 0.4 % (0-2) 11/28/20 17:11 Absolute Neuts (auto) 4.0 10^3/uL (1.7-8.2) 11/28/20 17:11 Absolute Lymphs (auto) 2.1 10^3/uL (0.5-4.7) 11/28/20 17:11 Absolute Monos (auto) 0.4 10^3/uL (0.1-1.4) 11/28/20 17:11 Absolute Eos (auto) 0.0 10^3/uL (0.0-0.6) 11/28/20 17:11 Absolute Basos (auto) 0.0 10^3/uL (0.0-0.2) 11/28/20 17:11 Seg Neutrophils % 61.0 % (42-78) 11/28/20 17:11 Urine Color YELLOW 11/28/20 16:15 Urine Appearance CLOUDY 11/28/20 16:15 Urine pH 7.0 (5.0-9.0) 11/28/20 16:15 Ur Specific [place] 1.015 11/28/20 16:15 Urine Protein 30 mg/dL (NEGATIVE) H 11/28/20 16:15 Urine Glucose (UA) NEGATIVE mg/dL (NEGATIVE) 11/28/20 16:15 Urine Ketones NEGATIVE mg/dL (NEGATIVE) 11/28/20 16:15 Urine Blood SMALL (NEGATIVE) H 11/28/20 16:15 Urine Nitrite NEGATIVE (NEGATIVE) 11/28/20 16:15 Urine Bilirubin NEGATIVE (NEGATIVE) 11/28/20 16:15 Urine Urobilinogen NEGATIVE mg/dL (<2.0) 11/28/20 16:15 Ur Leukocyte Esterase MODERATE (NEGATIVE) H 11/28/20 16:15 Urine Ascorbic Acid NEGATIVE (NEGATIVE) 11/28/20 16:15 Membranes Rupture POSITIVE (NEGATIVE) H 11/28/20 16:25 Epi Cells (Wet Prep) 3+ EPITHELIALS SEEN 11/28/20 16:25 Bacteria (Wet Prep) 3+ BACTERIA SEEN 11/28/20 16:25 Trichomonas (Wet Prep) NO TRICHOMONAS SEEN 11/28/20 16:25 Vaginal WBC 1+ WBCS SEEN 11/28/20 16:25 Vaginal RBC NO RBCS SEEN 11/28/20 16:25 Vaginal Yeast NO YEAST SEEN 11/28/20 16:25 Urine Opiates Screen NEGATIVE 11/28/20 16:15 Urine Methadone Screen NEGATIVE 11/28/20 16:15 Ur Barbiturates Screen NEGATIVE 11/28/20 16:15 Ur Phencyclidine Scrn NEGATIVE 11/28/20 16:15 Ur Amphetamines Screen NEGATIVE 11/28/20 16:15 U Benzodiazepines Scrn NEGATIVE 11/28/20 16:15 Urine Cocaine Screen NEGATIVE 11/28/20 16:15 U Marijuana (THC) Screen NEGATIVE 11/28/20 16:15 Chlamydia DNA (PCR) NOT DETECTED (NOT DETECT) 11/28/20 16:25 HIV 1&2 Antibody NEGATIVE (NEGATIVE) 11/28/20 17:10 N.gonorrhoeae DNA (PCR) NOT DETECTED (NOT DETECT) 11/28/20 16:25 Rubella IgG Antibody 44.60 IU/mL 11/28/20 17:10 Rubella IgG Ab Interp POSITIVE 11/28/20 17:10 Blood Type O POSITIVE 11/28/20 17:10 Antibody Screen NEGATIVE 11/28/20 17:10 Stroke Is this a Stroke Patient?: No Acute Heart Failure Is this a Heart Failure Patient?: No
[2020-11-30] MEDS: DOCUSATE SODIUM 100 MG CAPSULE PO SCH (10:32)
[2020-11-30] MEDS: SENNOSIDES/DOCUSATE 8.6-50 MG 1 EACH TABLET PO SCH (10:33)
[2020-11-30] MEDS: FERROUS SULFATE 325 MG TABLET PO SCH (10:33)
[2020-11-30] MEDS: PRENATAL VITAMIN W DHA CAPSULE PO SCH (10:33)
[2020-11-30 11:43] VITALS: BP 125/81
[2020-12-01 15:05] LABS: HEPATITS B SURFACE ANTIGEN Negative (Negative)
== END 2020-11-30 13:34 | disposition home or self-care (01) | DRG 807 ==
LOC: LC 15:54 → LR 17:11 → 2S 11-29 02:07
PROVIDERS: ADMIT Student in an Organized Health Care Education/Training Program; ATTEND Student in an Organized Health Care Education/Training Program
PROC: 10E0XZZ Delivery of Products of Conception, External Approach (ICD-10-PCS; principal; 2020-11-28)
DX: O69.81X0 Labor and delivery complicated by cord around neck, without compression, not applicable or unspecified (principal); Z37.0 Single live birth; O99.824 Streptococcus B carrier state complicating childbirth; Z20.822 Contact with and (suspected) exposure to COVID-19; Z3A.38 38 weeks gestation of pregnancy
CPT/HCPCS: 36415; 80307; 81005; 84112; 85025; 86592; 86701; 86762; 86850; 86900; 86901; 87210; 87340; 87491; 87591; 94760; J2540; J2590; J2795; J3010; J3490; J7060